=== PATIENT | female | born 1950 ===

== ENCOUNTER 2023-09-21 05:53 | Day surgery (SDC) | payer OTHER ==
[~2023-09-21 05:53] MED LIST: COZAAR100 MG PO; PROTONIX20 MG PO
[2023-09-21] MEDS ORDERED: MACROBID 100 M100 MG PO (10:27)
[2023-09-21] MEDS ORDERED: TRAM1TAB98 PO (10:28)
== END 2023-09-21 14:40 | disposition home or self-care (01) ==
LOC: CIR.AMB 05:53
PROVIDERS: ATTEND Obstetrics & Gynecology Gynecology
DX: N81.11 Cystocele, midline (principal); N81.6 Rectocele; I10 Essential (primary) hypertension